=== PATIENT | female | born 1995 | race Caucasian/White ===

== ENCOUNTER 2021-05-25 02:20 | Inpatient (IN) | payer MEDICAID, SELFPAY, OTHER ==
[2021-05-25] VITALS (47 sets, daily range): BP systolic 96–136; BP diastolic 51–91; PULSE 73–129; RESP 15–16; TEMP 36.6–38.1; O2SAT 79–100; BMI 24.7
[2021-05-25] MEDS: Lactated Ringers 1,000 ML 50 ML IV (02:45)
[2021-05-25] MEDS: Lactated Ringers 500 ML 999 ML IV ×2 (02:46→08:21)
[2021-05-25 03:10] LABS: Absolute Lymphocyte Count 0.71 X10^3/uL (0.83-4.51); Basophil# 0.03 X10^3/uL; Basophil% 0.2 % (0-1); Hematocrit 34.1 % (37-47); Hemoglobin 11.6 g/dL (12.0-15.0); Lymphocyte # 0.71 X10^3/ul (0.83-4.51); Lymphocyte % 3.8 % (19-41); Mean Corpuscular Hgb 28.3 pg (27.0-32.0); Mean Corpuscular Volume 83.2 fL (81-99); Mean Platelet Vol. 11.8 fl (6.2-12.0); Monocyte# 0.73 X10^3/uL; Monocyte% 3.9 % (0-10); NRBC Flagged by Analyzer 0 % (0-5); Neutrophil # 16.96 X10^3/uL (2.7-7.7); Neutrophil % 91.2 % (47-70); Platelet Count 139 K/mm3 (150-450); RBC Distribution Width CV 13.7 % (11.6-14.6); RBC Distribution Width SD 41.5 fl (35.1-43.9); White Blood Count 18.6 K/mm3 (4.4-11.0)
[2021-05-25] MEDS: fentaNYL-bupivacaine (epidural) 100 ML BAG EPIDURAL ×2 (03:50→08:13)
[2021-05-25 04:31] LABS: Bedside Glucose 148 mg/dL (74-106)
[2021-05-25 04:31] LABS: Bedside Glucose 157 mg/dL (74-106)
[2021-05-25 04:46] LABS: HIV - WCH Non-Reactive (Nonreactive); Hepatitis C Antibody Non-Reactive (Nonreactive)
[2021-05-25 05:46] LABS: Bedside Glucose 125 mg/dL (74-106)
[2021-05-25] MEDS: Lactated Ringers 1,000 ML 200 ML IV (06:45)
[2021-05-25 06:56] LABS: Bedside Glucose 135 mg/dL (74-106)
[2021-05-25 07:55] LABS: Bedside Glucose 115 mg/dL (74-106)
--- NOTE | 2021-05-25 07:57 | HP.PCM.OB_ITS ---
HPI - General General Date of Admission: 05/25/21 HPI Narrative CUCO MACIEL, is a 25 F who presents in active labor, ruptured since 7 pm last night. she has been under the care of a nurse naphthol soaping machine operator and [facility] [place]. After being stalled out at 6 cm for 7 hours and being very uncomfortable requesting an epidural the naphthol soaping machine operator requested transfer to a higher level care center and was admitted here. Patient underwent epidural and is now 7 cm with regular contractions. [facility] Medical History (Updated 05/25/21 @ 08:[address] Sehrie Anand MD) Family history of hearing loss at age younger than 7 years Headache Superficial varicosities Home Medications [id number] [] 1 tab PO DAILY 05/25/21 [History Last Taken 05/24/21 08:00] Allergy/AdvReac Type Severity Reaction Status Date / Time No Known Allergies Allergy Verified 05/25/21 02:55 Social History Smoking Status: Current some day smoker History Elective abortions Hx Para 0 Spontaneous abortions Hx # Term Pregnancies Ectopic pregnancies Hx # Pregnancies Multiple births # of living children NST FHR Rate Baby A Baseline: 140 Variability:: Moderate Accelerations:: 15 x 15 Decelerations:: None NST Reactive:: Yes FHR Category:: Category I Uterine Activity:: q3-5 ROS Constitutional Constitutional: Reports systems reviewed and no addt'l complaints, except as documented ENT HEENT: Reports systems reviewed and no addt'l complaints, except as documented Cardiovascular Cardiovascular: Reports systems reviewed and no addt'l complaints, except as documented Respiratory/Chest Respiratory/Chest: Reports systems reviewed and no addt'l complaints, except as documented Gastrointestinal Gastrointestinal: Reports systems reviewed and no addt'l complaints, except as documented and nausea; Denies abdominal pain Genitourinary Genitourinary: Reports systems reviewed and no addt'l complaints, except as documented, contractions Details: present and frequency (regular ) and movement Details: present Musculoskeletal Musculoskeletal: Reports systems reviewed and no addt'l complaints, except as documented Integumentary Integumentary: Reports as per HPI Neurologic Neurologic: Reports systems reviewed and no addt'l complaints, except as documented Endocrine Endocrinology: Reports systems reviewed and no addt'l complaints, except as documented Vital Signs Vital Signs Vital Signs: 05/25/21 02:37 05/25/21 03:22 05/25/21 03:27 Temperature 98.2 F Temperature Source Temporal Pulse Rate 107 H 124 H 102 H Blood Pressure 135/88 H 129/80 H BP Systolic 135 129 BP Diastolic 88 80 Pulse Ox 99 99 05/25/21 03:28 05/25/21 03:29 05/25/21 03:32 Temperature Temperature Source Pulse Rate 91 100 101 H Blood Pressure 136/91 H 130/86 H BP Systolic 136 130 BP Diastolic 91 86 Pulse Ox 94 99 05/25/21 03:37 05/25/21 03:42 05/25/21 03:47 Temperature Temperature Source Pulse Rate 103 H 89 98 Blood Pressure 129/90 H 133/73 H BP Systolic 129 133 BP Diastolic 90 73 Pulse Ox 93 99 97 05/25/21 03:48 05/25/21 03:52 05/25/21 03:57 Temperature Temperature Source Pulse Rate 117 H 121 H 120 H Blood Pressure 121/72 H 115/67 110/62 BP Systolic 121 115 110 BP Diastolic 72 67 62 Pulse Ox 97 98 05/25/21 04:02 05/25/21 04:07 05/25/21 04:12 Temperature Temperature Source Pulse Rate 116 H 118 H 116 H Blood Pressure 103/57 L 106/61 97/53 L BP Systolic 103 106 97 BP Diastolic 57 61 53 Pulse Ox 99 100 100 05/25/21 04:17 05/25/21 04:18 05/25/21 04:19 Temperature Temperature Source Pulse Rate 97 86 Blood Pressure 110/75 BP Systolic 110 BP Diastolic 75 Pulse Ox 100 79 05/25/21 04:22 05/25/21 04:23 05/25/21 04:58 Temperature 98.5 F Temperature Source Temporal Pulse Rate 102 H 98 74 Blood Pressure 111/69 106/56 L BP Systolic 111 106 BP Diastolic 69 56 Pulse Ox 100 99 05/25/21 05:13 05/25/21 05:38 05/25/21 06:34 Temperature 99.3 F H 98.6 F Temperature Source Temporal Temporal Pulse Rate 83 81 Blood Pressure 96/51 L 98/57 L BP Systolic 96 98 BP Diastolic 51 57 Pulse Ox 98 98 05/25/21 07:31 05/25/21 07:32 Temperature Temperature Source Pulse Rate 104 H 129 H Blood Pressure 124/79 H BP Systolic 124 BP Diastolic 79 Pulse Ox 100 Weight Weight: 135 lb 4.8 oz Body Mass Index (BMI) 24.7 Physical Exam Const alert, oriented x3 and healthy appearing Constitutional Narrative: uncomfortable with contractions HEENT normocephalic and moist oral mucous membranes Head and Scalp: atraumatic Neck full ROM, no lymphadenopathy, supple and thyroid normal General: trachea midline Thyroid: thyroid normal Lymph Lymphatic: no lymphadenopathy noted Chest inspection of chest normal Resp normal respiratory effort Cardio regular rate GI normal to inspection, nondistended, normoactive bowel sounds, soft to palpation and non-tender Inspection: gravid external exam normal Bimanual Exam - Vag & Uterus: uterus non-tender Manual OB Exam: estimated gestational size appropriate, presentation cephalic, dilated, effaced and station Extremity normal to inspection General Extremity: Negative for edema Skin no rashes or lesions noted Neuro deep tendon reflexes 2+ bilaterally Motor Exam: strength 5/5 throughout and clonus absent Psych mental status grossly normal Labs Labs Labs: Blood Type B POSITIVE Antibody Screen NEGATIVE Hct 34.1 % (37-47) L Hgb 11.6 g/dL (12.0-15.0) L HIV 1&2 Antibody Non-Reactive (Nonreactive) Assessment & Plan (1) Active labor at term: COMMENT: Transfer of care at 6 cm from naphthol soaping machine operator care at birthing center. (2) Elevated blood sugar: COMMENT: Monitoring throughout labor, patient did not have glucose screening in the . Insulin drip as needed. (3) GBS (group B Streptococcus carrier), +RV culture, currently : COMMENT: Penicillin in labor was receiving already during labor at [facility] center PLAN: Pitocin as needed. Elevated white blood cell count rupture of membranes 12 hours. Watch for signs of triple I patient already on antibiotics for GBS prophylaxis based on GBS positive in . Continue antibiotics.
[2021-05-25] MEDS: Penicillin G 3,000,000 Units 50 ML 100 UNITS IV (08:59)
[2021-05-25 09:26] LABS: Bedside Glucose 115 mg/dL (74-106)
[2021-05-25 10:16] LABS: Bedside Glucose 106 mg/dL (74-106)
[2021-05-25] MEDS: Oxytocin 30 units/NS 500 ml 30 UNITS/500 ML IV.SOLN 334 UNITS IV (11:34)
--- NOTE | 2021-05-25 11:41 | PLAC_PTH ---
PATIENT: CUCO MACIEL LOC: [facility] U#:[id number] AGE/SX: 25/F ROOM: [facility] RE05/25/[address]: Dr. Sherie Anand MD : 1995 BED: 1 DIS: 05/26/2021 SPEC #: [id number] RECD: 05/25/21 12:49 STATUS: ESTHER RETemo #: [id number] IVETH: 05/25/21 11:[address]: Sherie Anand DEPT: SURGICAL PATHOLOGY RECD BY: Karlie Latham ENTERED: 05/26/21 10:59 SP TYPE: PLACENTA OTHR DR: No Primary Care Phys Tissues: Placenta, NOS Procedures: Surgery Specimen Level V HEADER OPERATION: Vaginal delivery PRE-OP DIAGNOSIS: Fever TISSUE SUBMITTED: Placenta MICROSCOPIC DIAGNOSIS [place] placenta (479 gm): Umbilical cord ? trivascular with no inflammation. Placental membranes ? mild acute chorioamnionitis and acute deciduitis. Placental disc ? Tess-Tristin change, intervillous congestion and mild increased intraparenchymal microcalcifications. AM:vasquez 05/27/2021 MICROSCOPIC DESCRIPTION Slides are reviewed. GROSS DESCRIPTION SPECIMEN: PLACENTA / CLINICAL INFORMATION: A. Weight: 2.965 kg B. Gestational Age: 40 weeks C. Sex: Male PLACENTAL WEIGHT (POST FIXATION): 479 gm PLACENTAL DIMENSIONS: 16 x 16 x 3 cm PLACENTAL SHAPE: Usual ovoid PLACENTAL WEIGHT FOR GESTATIONAL AGE: Within 10-99th percentile MEMBRANES - Present A. Insertion: Marginal B. Site of rupture from edge: 2.5 cm from edge of placental disc C. Color of membrane: Contreras-martinez D. Abnormalities: Two foci of intramembranous hemorrhage are identified measuring 4 and 9 cm in greatest dimension, respectively. UMBILICAL CORD - Present A. Color: Contreras-martinez B. Insertion: Near central insertion C. Length: 34 cm D. Diameter: 1.3 cm E. Number of vessels: Three F. Abnormalities: None PLACENTAL DISC - Present A. Color of surface: Contreras-martinez B. surface abnormalities: None C. Maternal cotyledons: Intact with minimal tears D. Attached retro placental clot: No clot E. Cut surface: Dark red and spongy F. Lesions: None G. Separate clot: Absent SECTIONS SUBMITTED: 1. Umbilical cord ( end notched) 2. Umbilical cord, placental end 3. Membrane roll 4. Placental disc, and maternal surfaces 5. Placental disc, and maternal surfaces 6. Placental disc, and maternal surfaces AM:vasquez 05/26/2021 TC:2 CPT: 15655
--- NOTE | 2021-05-25 11:45 | OP.PCM_ITS ---
Assessment & Plan (1) Vaginal delivery: COMMENT: ial sm MARÍA patient day coordinator from [facility] boy 40 (2) Elevated temperature: COMMENT: at delivery- ancef x 1 given, monitor and give additional antibiotics PRN, placenta sent (3) GBS (group B Streptococcus carrier), +RV culture, currently : COMMENT: Penicillin in labor was receiving already during labor at [facility] (4) Elevated blood sugar: COMMENT: Monitoring throughout labor, patient did not have glucose screening in the . Insulin drip as needed. (5) Active labor at term: COMMENT: Transfer of care at 6 cm from patient day coordinator care at [facility]. Vaginal Delivery Operative Information Date of Procedure: 05/25/21 Pre-Operative Diagnosis: IAL Post-Operative Diagnosis: same Surgery / Procedure Performed: Spontaneous Vaginal Delivery Type of Anesthesia: Epidural Special Medications: none Estimated Blood Loss: 100 Fluids Replaced: crystalloid Findings Description of Procedure: Patient began pushing and delivered the head in the CHELA presentation. The head was delivered atraumatically . The anterior and posterior shoulders delivered without complication followed by the rest of the and the was placed on the maternal abdomen. Delayed cord clamping was not employed due to was floppy at and requiring some resuscitation. temp was 100.5 for mom 30 minutes prior to and at therefore ancef given.some variables prior to present. Cord was clamped and cut and gentle traction was applied to the cord and the placenta delivered spontaneously immediately following it was noted to be intact with three-vessel cord. The perineum and vagina were inspected and noted to have no laceration. EBL was 100 cc. Patient and infant tolerated delivery well. Presentation: CHELA Amniotic Membrane Rupture Type: Artificial (at [facility]) Time of Membrane Rupture: 05/24 Amniotic Fluid Description: Clear Placental Delivery Description: Spontaneous Placenta Disposition: [facility] Cord Vessel Description: 3 Vessels Cord Entanglement: None Infant A Gender: Male (1 minute): 8 (5 minute): 9 Delayed Cord Clamping: No Post Vaginal Delivery Medications Given After Delivery: IV Pitocin Episiotomy Description: None Laceration: None Complication Complications: None Procedures Urinary/Genital [id number]: [id number] Vaginal Delivery+PP Care([facility])
[2021-05-25 12:40] LABS: Bedside Glucose 108 mg/dL (74-106)
[2021-05-25 12:40] LABS: Bedside Glucose 104 mg/dL (74-106)
[2021-05-25 12:48] LABS: Pathology Specimen OB SEE PATHOLOGY REPORT
[2021-05-25] MEDS: Cefazolin 2 GM in 0.9% Normal Saline 100 ML IV (13:07)
[2021-05-25] MEDS: 0.9% Saline Lock 10 ML Syringe IV (14:00)
[2021-05-25] MEDS: Acetaminophen 500 MG Tablet 1000 MG PO (20:45)
[2021-05-26 00:55] VITALS: BP 105/61; PULSE 80; RESP 14; TEMP 36.1
[2021-05-26] MEDS: Naproxen 500 MG Tablet PO (01:06)
[2021-05-26 04:25] VITALS: BP 106/65; PULSE 65; RESP 18; TEMP 36.1
[2021-05-26 05:51] LABS: Bedside Glucose 81 mg/dL (74-106)
[2021-05-26 07:59] VITALS: BP 109/59; PULSE 70; RESP 16; TEMP 36.4; O2SAT 97
[2021-05-26 08:15] LABS: Absolute Lymphocyte Count 1.61 X10^3/uL (0.83-4.51); Absolute Neutrophil Count 8.3 X10^3/uL (2.0-7.7); Basophil# 0.03 X10^3/uL; Basophil% 0.3 % (0-1); Eosinophil# 0.04 X10^3/uL; Eosinophils% 0.4 % (0-5); Hematocrit 29.9 % (37-47); Lymphocyte # 1.61 X10^3/ul (0.83-4.51); Lymphocyte % 15.1 % (19-41); Mean Corp Hgb Conc 33.4 g/dL (32-36); Mean Corpuscular Hgb 28.7 pg (27.0-32.0); Mean Corpuscular Volume 85.7 fL (81-99); Mean Platelet Vol. 11.3 fl (6.2-12.0); Monocyte# 0.62 X10^3/uL; Monocyte% 5.8 % (0-10); NRBC Flagged by Analyzer 0 % (0-5); Neutrophil # 8.28 X10^3/uL (2.7-7.7); Neutrophil % 77.5 % (47-70); Platelet Count 109 K/mm3 (150-450); RBC Distribution Width CV 14.3 % (11.6-14.6); Red Blood Count 3.49 M/mm3 (4.2-5.4); White Blood Count 10.7 K/mm3 (4.4-11.0)
--- NOTE | 2021-05-26 08:32 | PN.OBGYN_ITS ---
Subjective Subjective Patient doing well without complaints. Tolerating PO. Ambulating and voiding without difficulty. Feeding well. Denies chest pain, shortness of breath, calf pain/swelling, fevers, chills, lightheadedness. Objective Data Objective Data Vital Signs: Vital Signs Temp Pulse Resp BP Pulse Ox 97.5 F L 70 16 109/59 L 97 05/26/21 07:59 05/26/21 07:59 05/26/21 07:59 05/26/21 07:59 05/26/21 07:59 Oxygen Delivery Method Room Air Weight: 135 lb 4.8 oz Body Mass Index (BMI) 24.7 Intake & Output: Intake and Output for Last 24 Hours 05/24/21 05/25/21 05/26/21 23:59 23:59 23:59 Intake Total 4625.00 / 4625.00 Output Total 2040 / 204 Balance 2585.00 / 2585.00 Lab / Micro Data Result Diagrams: 05/26/21 08:00 Labs: Laboratory Results - last 24 hr 05/25/21 09:03: POC Glucose 115 H 05/25/21 10:04: POC Glucose 106 05/25/21 11:08: POC Glucose 108 H 05/25/21 12:16: POC Glucose 104 05/26/21 05:44: POC Glucose 81 05/26/21 08:00: WBC 10.7, RBC 3.49 L, Hgb 10.0 L, Hct 29.9 L, MCV 85.7, MCH 28.7, MCHC 33.4, RDW Std Deviation 44.0 H, RDW Coeff of Meaghan 14.3, Plt Count 109 L, MPV 11.3, Immature Gran % (Auto) 0.900, Neut % (Auto) 77.5 H, Lymph % (Auto) 15.1 L, [place] % (Auto) 5.8, Eos % (Auto) 0.4, Baso % (Auto) 0.3, Absolute Neuts (auto) 8.3 H, Absolute Lymphs (auto) 1.61, Nucleated RBC % 0 Physical Exam Const alert and oriented x3 HEENT normocephalic Eyes PERRL Neck full ROM Resp normal respiratory effort GI soft to palpation GI Narrative: FF below U Assessment & Plan (1) Vaginal delivery: COMMENT: ial sm MARÍA 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 stable pp (4) Elevated WBC count: QUALIFIERS: Leukocytosis type: unspecified Qualified Code(s): D72.829 - Elevated white blood cell count, unspecified PLAN: s/p PPD # 1 1. routine post delivery care 2. breast feeding- support given 3. rh positive 4. rubella immune 5.repeat cbc 4 hours from last; afebrile 6. home today
[2021-05-26 13:55] VITALS: BP 107/72; PULSE 70; RESP 16; TEMP 36.1; O2SAT 98
== END 2021-05-26 13:45 | disposition home or self-care (01) | DRG 998 ==
PROVIDERS: Nurse Practitioner Women's Health; Admitting Provider Obstetrics & Gynecology; Visit Provider Obstetrics & Gynecology
DX: O98.82 Other maternal infectious and parasitic diseases complicating childbirth (principal); Z37.0 Single live birth; O99.12 Other diseases of the blood and blood-forming organs and certain disorders involving the immune mechanism complicating childbirth; O75.2 Pyrexia during labor, not elsewhere classified; B95.1 Streptococcus, group B, as the cause of diseases classified elsewhere; F17.200 Nicotine dependence, unspecified, uncomplicated; D72.829 Elevated white blood cell count, unspecified; O99.334 Smoking (tobacco) complicating childbirth; O99.892 Other specified diseases and conditions complicating childbirth; R73.9 Hyperglycemia, unspecified; Z3A.40 40 weeks gestation of pregnancy
CPT/HCPCS: 59025; 59050; 82962; 85025; 86703; 86803; 86850; 86900; 86901; 88307; 99218; J7120; A4216; G0378